=== PATIENT | female | born 1995 | race Two or more races ===

== ENCOUNTER 2018-04-02 17:32 | Emergency (ER) | payer MEDICAID ==
[~2018-04-02] VITALS: Ht 165.1 cm; Wt 57.2 kg
[~2018-04-02 17:32] MED LIST: PREN-96 PO
[2018-04-02 19:35] VITALS: BP 102/69
== END 2018-04-02 20:43 | disposition home or self-care (01) ==
LOC: ER 17:36
DX: S93.401A Sprain of unspecified ligament of right ankle, initial encounter (principal); X50.0XXA Overexertion from strenuous movement or load, initial encounter; Y93.89 Activity, other specified; Y99.8 Other external cause status; Y92.89 Other specified places as the place of occurrence of the external cause
CPT/HCPCS: 73610

== ENCOUNTER 2019-09-06 18:08 | Emergency (ER) | payer BC, MEDICAID, OTHER ==
[~2019-09-06] VITALS: Ht 167.6 cm; Wt 68.0 kg
[2019-09-06 19:42] VITALS: BP 99/69
== END 2019-09-06 20:09 | disposition home or self-care (01) ==
LOC: ER 18:14
DX: J06.9 Acute upper respiratory infection, unspecified (principal)

== ENCOUNTER 2019-11-25 22:28 | Inpatient (IN) | payer BC ==
[~2019-11-25] VITALS: Ht 167.6 cm; Wt 77.1 kg
[2019-11-25] MEDS ORDERED: LACT. RINGERS/OXYTOCIN 20UNITS 1,000 ML IV SCH (22:37)
[2019-11-25] MEDS ORDERED: WITCH HAZEL-GLYCERIN PAD TOP PRN (22:45)
[2019-11-25] MEDS ORDERED: DERMOPLAST 60ML BOTTLE TOP PRN (22:45)
[2019-11-25] MEDS ORDERED: LIDOCAINE 2%HCL (LOCAL ANESTH.) INJ 20ML MDV ID ONE (22:45)
[2019-11-25] MEDS ORDERED: PHISODERM TOP SOLN 240ML BTL TOP PRN (22:45)
[2019-11-25 23:11] LABS: Basophils # (auto) 0 10 ^3/uL (0-0.2); Basophils % (auto) 0.3 % (0.0-2.0); Eosinophils # (auto) 0 10 ^3/uL (0-0.8); Eosinophils % (auto) 0.7 % (0.0-7.0); Hematocrit 37.5 % (36.0-46.0); Hemoglobin 12.3 g/dL (12.2-16.2); Lymphocytes # (auto) 1.4 10 ^3/uL (0.4-5.4); Lymphocytes % (auto) 21.3 % (10.0-50.0); Mean Corpuscular Hemoglobin 28.2 pg (28.0-32.0); Mean Corpuscular Hgb Conc. 32.9 g/dL (32.0-36.0); Mean Corpuscular Volume 85.6 fL (80.0-100.0); Monocytes # (auto) 0.6 10 ^3/uL (0-1.3); Monocytes % (auto) 9.5 % (0.0-12.0); Neutrophils # (auto) 4.3 10 ^3/uL (1.6-8.6); Neutrophils % (auto) 68.2 % (37.0-80.0); Nucleated Red Blood Cells % 0.1 %; Platelet Count (auto) 141 10^3/uL (140-450); Red Blood Cells 4.38 10^6/uL (4.0-5.20); Red Cell Distribution Width 15.5 % (11.8-14.3); White Blood Cell 6.4 10^3/uL (4.4-10.8)
[2019-11-25 23:27] LABS: Albumin 2.8 g/dL (3.4-5.0); BUN/Creatinine Ratio 14.5; Calcium 8.3 mg/dL (8.5-10.1); Potassium 3.5 mmol/L (3.5-5.1)
[2019-11-25 23:28] LABS: INR 0.96 (0.9-1.15); Partial Thromboplastin Time 30.5 sec (23.64-32.05)
[2019-11-25 23:38] LABS: Bilirubin, Total 0.2 mg/dL (0.2-1.0); Total Protein 6.5 g/dL (6.4-8.2)
[2019-11-25] MEDS ORDERED: BUTORPHANOL TARTRATE 2 MG/1 ML VIAL IM ONE (23:45)
[2019-11-25] MEDS ORDERED: PROMETHAZINE HCL 25 MG/ML 1ML IM ONE (23:45)
[2019-11-25 23:48] LABS: Urine Bacteria FEW /hpf (None Seen); Urine Blood Negative /uL (Negative); Urine Mucus FEW (None Seen); Urine Specific Gravity 1.017 (1.001-1.035); Urine WBC 21 /hpf (0 - 5)
[2019-11-25 23:56] LABS: Amphetamine Screen, Urine NEGATIVE (NEGATIVE); Barbiturate Scree,Urine NEGATIVE (NEGATIVE); Benzodiazephine Screen, Urine NEGATIVE (NEGATIVE); Cannabinoid Screen, Urine NEGATIVE (NEGATIVE); Cocaine Screen, Urine NEGATIVE (NEGATIVE); Opiate Scree,Urine NEGATIVE (NEGATIVE); Phencyclidine Screen, Urine NEGATIVE (NEGATIVE)
[2019-11-26] MEDS: miSOPROStol 50 MCG per PRE-CUT 1/2 TAB PO PRN ×2 (01:56→05:57)
[2019-11-26] MEDS: LACTATED RINGER'S 1,000 ML IV SCH ×2 (05:02→11:32)
[2019-11-26] MEDS ORDERED: METHYLERGONOVINE MALEATE 0.2 MG/ML AMP IM PRN (06:00)
[2019-11-26] MEDS ORDERED: fentaNYL 200mCg/100ml W ROPIVA 100 ML EPI SCH ×2 (10:15→12:00)
[2019-11-26] MEDS ORDERED: fentaNYL CITRATE 100 MCG/2 ML VL IV ONE (10:15)
[2019-11-26] MEDS ORDERED: NALOXONE HCL 0.4 MG/ML VIAL IV ONE ×2 (10:15→12:00)
[2019-11-26] MEDS ORDERED: LACTATED RINGER'S 1,000 ML IV ONE (10:15)
[2019-11-26] MEDS ORDERED: ePHEDrine SULFATE 50 MG/ML AMP IV ONE ×2 (10:15→12:00)
[2019-11-26] MEDS ORDERED: SODIUM CHLORIDE 0.9% 500 ML IV PRN (11:57)
[2019-11-26] MEDS ORDERED: miSOPROStol 100 mcg TAB ONE ×3 (14:06→14:13)
[2019-11-26] MEDS ORDERED: CARBOPROST TROMETHAMINE 250 MCG/1ML VIAL IM ONE ×2 (14:10→14:12)
[2019-11-26] MEDS ORDERED: DIPHENOXYLATE W/ATROPINE 2.5 MG TAB ONE (14:11)
[2019-11-26] MEDS ORDERED: ONDANSETRON HCL 4 MG/2 ML VIAL ONE (14:38)
[2019-11-26] MEDS ORDERED: ceFAZolin 1GM/50ML 50 ML IV ONE (14:50)
[2019-11-26 15:07] LABS: Basophils # (auto) 0 10 ^3/uL (0-0.2); Basophils % (auto) 0.3 % (0.0-2.0); Eosinophils # (auto) 0 10 ^3/uL (0-0.8); Eosinophils % (auto) 0.2 % (0.0-7.0); Hematocrit 34.7 % (36.0-46.0); Hemoglobin 11.4 g/dL (12.2-16.2); Lymphocytes # (auto) 1.1 10 ^3/uL (0.4-5.4); Lymphocytes % (auto) 15.3 % (10.0-50.0); Mean Corpuscular Hemoglobin 28.7 pg (28.0-32.0); Mean Corpuscular Volume 86.9 fL (80.0-100.0); Monocytes # (auto) 0.5 10 ^3/uL (0-1.3); Monocytes % (auto) 7.1 % (0.0-12.0); Neutrophils # (auto) 5.5 10 ^3/uL (1.6-8.6); Neutrophils % (auto) 77.1 % (37.0-80.0); Platelet Count (auto) 116 10^3/uL (140-450); Red Blood Cells 3.99 10^6/uL (4.0-5.20); Red Cell Distribution Width 15.6 % (11.8-14.3); White Blood Cell 7.1 10^3/uL (4.4-10.8)
[2019-11-26] MEDS: CARBOPROST TROMETHAMINE 250 MCG/1ML VIAL IM PRN ×2 (15:13→15:14)
[2019-11-26 18:30] VITALS: BP 118/77
[2019-11-26] MEDS ORDERED: ACETAMINOPHEN 325 MG TAB PO PRN (20:30)
[2019-11-26] MEDS ORDERED: IBUPROFEN 600 MG TAB PO PRN (20:30)
[2019-11-26] MEDS ORDERED: ONDANSETRON HCL 4 MG/2 ML VIAL IV PRN (20:30)
[2019-11-26] MEDS: ceFAZolin 1GM/50ML 50 ML IV SCH (22:52)
[2019-11-26 23:05] LABS: Basophils # (auto) 0.1 10 ^3/uL (0-0.2); Basophils % (auto) 0.5 % (0.0-2.0); Eosinophils # (auto) 0 10 ^3/uL (0-0.8); Eosinophils % (auto) 0.1 % (0.0-7.0); Hematocrit 31.3 % (36.0-46.0); Lymphocytes # (auto) 0.8 10 ^3/uL (0.4-5.4); Lymphocytes % (auto) 6.3 % (10.0-50.0); Mean Corpuscular Hemoglobin 28.2 pg (28.0-32.0); Mean Corpuscular Hgb Conc. 31.9 g/dL (32.0-36.0); Mean Corpuscular Volume 88.3 fL (80.0-100.0); Monocytes # (auto) 0.8 10 ^3/uL (0-1.3); Monocytes % (auto) 6.6 % (0.0-12.0); Neutrophils % (auto) 86.5 % (37.0-80.0); Platelet Count (auto) 130 10^3/uL (140-450); Red Blood Cells 3.55 10^6/uL (4.0-5.20); Red Cell Distribution Width 15.2 % (11.8-14.3); White Blood Cell 12.7 10^3/uL (4.4-10.8)
[2019-11-27] VITALS (7 sets, daily range): BP systolic 101–110; BP diastolic 59–65
[2019-11-27 04:06] LABS: RPR Non Reactive (Non Reactive)
[2019-11-27] MEDS: ceFAZolin 1GM/50ML 50 ML IV SCH (07:13)
[2019-11-28 03:00] VITALS: BP 111/57
[2019-11-28] MEDS ORDERED: MEASLES, MUMPS & RUBELLA VAC(MMRII) 0.5ML SC ONE (07:00)
[2019-11-28 07:30] VITALS: BP 103/64
[2019-11-28 10:48] VITALS: BP 103/64
== END 2019-11-28 11:20 | disposition home or self-care (01) | DRG 807 ==
LOC: LDRP 22:28
PROVIDERS: ADMIT Specialist; ATTEND Specialist
PROC: 10E0XZZ Delivery of Products of Conception, External Approach (ICD-10-PCS; principal; 2019-11-26)
PROC: 10907ZC Drainage of Amniotic Fluid, Therapeutic from Products of Conception, Via Natural or Artificial Opening (ICD-10-PCS; 2019-11-26)
PROC: 3E0P7VZ Introduction of Hormone into Female Reproductive, Via Natural or Artificial Opening (ICD-10-PCS; 2019-11-26)
PROC: 3E0R3BZ Introduction of Anesthetic Agent into Spinal Canal, Percutaneous Approach (ICD-10-PCS; 2019-11-26)
PROC: 00HU33Z Insertion of Infusion Device into Spinal Canal, Percutaneous Approach (ICD-10-PCS; 2019-11-26)
DX: O62.2 Other uterine inertia (principal); Z37.0 Single live birth; Z3A.39 39 weeks gestation of pregnancy
CPT/HCPCS: 36415; 51702; 59025; 59409; 62282; 80053; 80307; 81001; 81002; 84112; 85025; 85610; 85730; 86592; 86850; 86900; 86901; 86920; 96361; 96365; 96366; 96372; 96374; G0378; J0690; J2405; J2590

== ENCOUNTER 2020-12-20 16:05 | Emergency (ER) | payer BC ==
[~2020-12-20] VITALS: Ht 167.6 cm; Wt 65.8 kg
[2020-12-20 16:08] VITALS: BP 120/80
== END 2020-12-20 20:58 | disposition home or self-care (01) ==
LOC: ER 16:05
DX: N64.4 Mastodynia (principal)
CPT/HCPCS: 71250

== ENCOUNTER 2023-03-10 15:53 | Emergency (ER) | payer MEDICAID ==
[~2023-03-10] VITALS: Ht 167.6 cm; Wt 64.5 kg
[~2023-03-10 15:53] MED LIST changes: +IBUP-1455 PO
[2023-03-10 16:06] VITALS: BP 109/65; PULSE 93; RESP 18; TEMP 98.2; O2SAT 98
== END 2023-03-10 19:55 | disposition home or self-care (01) ==
LOC: ER 15:53
DX: R04.0 Epistaxis (principal); Z79.1 Long term (current) use of non-steroidal anti-inflammatories (NSAID); Z79.899 Other long term (current) drug therapy